=== PATIENT | female | born 1990 | race Caucasian/White ===

== ENCOUNTER 2016-09-29 00:52 | Emergency (ER) ==
[2016-09-29 01:01] VITALS: BP 121/89; TEMP 98.4; BMI 30.4
[2016-09-29] MEDS ORDERED: SODIUM CHLORIDE 1,000 ML IV STA (01:24)
--- NOTE | 2016-09-29 01:24 | ED.PDOC ---
General Stated Complaint: Patient is brought by police, as she was in the hotel parking lot and crying c/o headache, she is been drinking tonight, had 3 drinks of vodka ,. \c/o she is been having headaches for couple of years, on and off, also she says she is been bite bite something, ever since she is vomiting worms, black matter, noone listens to me. Time Seen by Physician: 01:21 Mode of Arrival: Police Information Source: Patient Nursing and Triage Documentation Reviewed and Agree: Yes <ELVA ROMERO - Last Filed: 09/29/16 01:21> Stated Complaint: patient in and out of room no acute distress not examined counsellor here at 10:20 vistaril and olanzipine has no coombs, per counsellor. per [facility]sellor [facility] at [facility] without paying arrested- kicked out of long term due to arrest- here for meds note no local psychiatrist. will allow home without patient follow up may contact psych in [place] as reportedly planned last [facility] visit <JANIE LEE JR - Last Filed: 09/29/16 16:43> ED Provider: Dr. JANIE LEE JR Chief Complaint: Behavioral Complaint Neurological Complaint Exam - Headache Complaint/Exam Onset: Gradual Symptoms Are: Still present Timing: Intermittent Episodes Lasting: Weeks Worst Headache Ever: No Initial Severity: Severe Current Severity: Moderate Location: Right, Left, Frontal Character: Reports: Unable to describe Aggravating: Reports: Bright lights Alleviating: Reports: None Associated Signs and Symptoms: Reports: Nausea, Vomiting. Denies: Dizziness, Seizure, Sinus pressure, Fever, Neck pain, Neck stiffness, Decreased LOC, Visual changes Related History: Reports: Similar episode Related Surgical History: Reports: None SAH Risk Factors: Reports: None Meningitis Risk Factors: Reports: None SDH Risk Factors: Reports: None Temporal Arteritis Risk Factors: Reports: None Sinus Tenderness: Present: None TMJ Tenderness: Present: None Meningeal Signs Positive: No Pain on Passive Flexion-Positive Kernig's: No ROM Limited In: No Limitiations Focal Weakness: Present: None Focal Sensory Loss: Present: None Gait: Normal Nystagmus Present: No Gag Reflex Present: Yes [id number]: Normal Findings Romberg Test Positive: No Babinski Sign: Negative Right, Negative Left Differential Diagnoses: Other (headache, etoh, hallusinations.) <ELVA ROMERO - Last Filed: 09/29/16 01:21> Review of Systems - Review Of Systems Constitutional: Reports: Malaise, Weakness Eyes: Reports: No symptoms Ears, Nose, Mouth, Throat: Reports: No symptoms Respiratory: Reports: No symptoms Cardiac: Reports: No symptoms GI: Reports: Abdominal pain, Nausea, Vomiting : Reports: No symptoms Musculoskeletal: Reports: No symptoms Skin: Reports: No symptoms Neurological: Reports: Emotional problems, Headache, Weakness Endocrine: Reports: No symptoms Hematologic/Lymphatic: Reports: No symptoms All Other Systems: Reviewed and Negative <ELVA ROMERO - Last Filed: 09/29/16 01:21> Past Medical History - Past Medical History Previously Healthy: Yes Endocrine: Reports: None Cardiovascular: Reports: None Respiratory: Reports: None Hematological: Reports: None Gastrointestinal: Reports: None Genitourinary: Reports: None Neuro/Psych: Reports: Depression, Bipolar Disorder Musculoskeletal: Reports: None Cancer: Reports: None Last Menstrual Period: UNKNOWN - Surgical History General Surgical History: Reports: None - Family History Family History: Reports: None - Social History Smoking Status: Current every day smoker, Heavy tobacco smoker Hx Substance Use: No Alcohol Screening: Occasionally - Immunizations Tetanus Shot up to Date: Yes <ELVA ROMERO - Last Filed: 09/29/16 01:21> Physical Exam - Physical Exam Appearance: Well-appearing (not examined by Dr Lee) Respiratory: Airway patent <JANIE LEE JR - Last Filed: 09/29/16 16:43> Re-Evaluation - Re-Evaluation Time of Re-Evaluation: 10:39 (patient in and out of room no acute distress not examined counsellor here at 10:20 vistaril and olanzipine has no coombs, per counsellor) Status: Improved Additional Comments: patient in and out of room no acute distress not examined counsellor here a <JANIE LEE JR - Last Filed: 09/29/16 16:43> Critical Care Note - Critical Care Note Total Time (mins): 0 <JANIE LEE JR - Last Filed: 09/29/16 16:43> Course - Course Hematology/Chemistry: 09/29/16 01:25 09/29/16 01:25 <JANIE LEE JR - Last Filed: 09/29/16 16:43> - Course Orders, Labs, Meds: Lab Review 09/29/16 09/29/16 09/29/16 01:25 02:05 02:07 WBC 8.71 RBC 4.94 Hgb 14.3 Hct 40.2 MCV 81.4 MCH 28.9 MCHC 35.6 H RDW Coeff of Cheikh 12.7 Plt Count 285 Immature Gran % (Auto) 1.0 Neut % (Auto) 58.0 Lymph % (Auto) 31.0 Sanders % (Auto) 5.7 Eos % (Auto) 3.6 Baso % (Auto) 0.7 Immature Gran # (Auto) 0.1 Neut # 5.1 Lymph # 2.7 Sanders # 0.5 Eos # 0.3 Baso # 0.1 Sodium 143 Potassium 3.4 L Chloride 108 H Carbon Dioxide 19 L Anion Gap 19.4 BUN 6 L Creatinine 0.77 Estimated GFR (MDRD) 93.00 BUN/Creatinine Ratio 7.79 Glucose 88 Calcium 8.9 Total Bilirubin 0.37 AST 20 ALT 46 Alkaline Phosphatase 61 Total Protein 7.4 Albumin 4.2 Globulin 3.2 Albumin/Globulin Ratio 1.31 Amylase 45 Lipase 20 TSH 2.724 Urine Color Yellow Urine Clarity Clear Urine pH 5.5 Ur Specific [place] 1.015 Urine Protein Negative Urine Glucose (UA) Negative Urine Ketones Negative Urine Blood 2+ Urine Nitrite Negative Urine Bilirubin Negative Urine Urobilinogen 0.2 Ur Leukocyte Esterase Trace Urine Microscopic RBC 5-10 Urine Microscopic WBC 2-5 Ur Squamous Epith Cells 5-10 Urine Bacteria 1+ Urine Test Negative Salicylate Level mg/dL < 5.0 Urine Opiates Screen Negative Ur Oxycodone Screen Negative Urine Methadone Screen Negative Ur Propoxyphene Screen Negative Acetaminophen < 3 L Ur Barbiturates Screen Negative U Tricyclic Antidepress Negative Ur Phencyclidine Scrn Negative Ur Amphetamine Screen Negative U Methamphetamines Scrn Negative U Benzodiazepines Scrn Negative Urine Cocaine Screen Negative U Cannabinoids Screen Negative Plasma/Serum Alcohol 137.5 H 09/29/16 06:45 WBC RBC Hgb Hct MCV MCH MCHC RDW Coeff of Cheikh Plt Count Immature Gran % (Auto) Neut % (Auto) Lymph % (Auto) Sanders % (Auto) Eos % (Auto) Baso % (Auto) Immature Gran # (Auto) Neut # Lymph # Sanders # Eos # Baso # Sodium Potassium Chloride Carbon Dioxide Anion Gap BUN Creatinine Estimated GFR (MDRD) BUN/Creatinine Ratio Glucose Calcium Total Bilirubin AST ALT Alkaline Phosphatase Total Protein Albumin Globulin Albumin/Globulin Ratio Amylase Lipase TSH Urine Color Urine Clarity Urine pH Ur Specific [place] Urine Protein Urine Glucose (UA) Urine Ketones Urine Blood Urine Nitrite Urine Bilirubin Urine Urobilinogen Ur Leukocyte Esterase Urine Microscopic RBC Urine Microscopic WBC Ur Squamous Epith Cells Urine Bacteria Urine Test Salicylate Level mg/dL Urine Opiates Screen Ur Oxycodone Screen Urine Methadone Screen Ur Propoxyphene Screen Acetaminophen Ur Barbiturates Screen U Tricyclic Antidepress Ur Phencyclidine Scrn Ur Amphetamine Screen U Methamphetamines Scrn U Benzodiazepines Scrn Urine Cocaine Screen U Cannabinoids Screen Plasma/Serum Alcohol 38.5 Orders Category Date Time Status ED IV/MEDIPORT/POWERPORT .ONCE EMERGENCY 09/29/16 01:24 Active ED IV/MEDIPORT/POWERPORT .ONCE EMERGENCY 09/29/16 01:54 Active Mental Health Consult [ED MENTAL HEALTH CONSULT] .ONCE EMERGENCY 09/29/16 01: 55 Active ACETAMINOPHEN Stat LAB 09/29/16 01:25 Completed AMYLASE Stat LAB 09/29/16 01:25 Completed BLOOD ALCOHOL Stat LAB 09/29/16 01:25 Completed BLOOD ALCOHOL Stat LAB 09/29/16 06:45 Completed CBC W/ AUTO DIFF Stat LAB 09/29/16 01:25 Completed COMPREHENSIVE METABOLIC PANEL Stat LAB 09/29/16 01:25 Completed DRUG SCREEN, URINE, RAPID Stat LAB 09/29/16 02:05 Completed LIPASE Stat LAB 09/29/16 01:25 Completed SALICYLATE Stat LAB 09/29/16 01:25 Completed TSH [THYROID STIMULATING HORMONE] Stat LAB 09/29/16 01:25 Completed URINALYSIS C & S IF INDICATED Stat LAB 09/29/16 02:05 Completed URINE CULTURE Routine LAB 09/29/16 02:16 Received URINE Stat LAB 09/29/16 02:07 Completed 0.9 % Sodium Chloride [Saline Flush] MEDS 09/29/16 01:24 Discontinued 1 syr IVF PRN PRN Acetaminophen [Tylenol] MEDS 09/29/16 08:44 Discontinued 1,000 mg PO ONCE STA Mag-Al Plus//Lidocaine [Gi Cocktail] MEDS 09/29/16 01:55 Discontinued 30 ml PO ONCE STA Ondansetron HCl/Pf [Zofran 4 mg/2 ml] MEDS 09/29/16 08:06 Discontinued 4 mg IVP ONCE STA Sodium Chloride 0.9% [Sodium Chloride] 1,000 ml MEDS 09/29/16 01:24 Discontinued IV 100 mls/hr Medications Discontinued Medications Generic Name Dose Route Start Last Admin Trade Name Freq PRN Reason Stop Dose Admin Acetaminophen 1,000 mg 09/29/16 08:44 09/29/16 08:49 Tylenol PO 09/29/16 08:45 1,000 mg ONCE STA Administration Al Hydroxide/Mg Hydroxide 30 ml 09/29/16 01:55 09/29/16 02:10 Gi Cocktail PO 09/29/16 01:56 30 ml ONCE STA Administration Sodium Chloride 1,000 mls @ 100 mls/hr 09/29/16 01:24 09/29/16 01:44 Sodium Chloride IV 09/29/16 11:23 100 mls/hr .Q10H STA Administration Ondansetron HCl 4 mg 09/29/16 08:06 09/29/16 08:19 Zofran 4 Mg/2 Ml IVP 09/29/16 08:07 4 mg ONCE STA Administration Sodium Chloride 1 syr 09/29/16 01:24 09/29/16 08:19 Saline Flush IVF 1 syr PRN PRN Administration To flush IV Vital Signs: Temp Pulse Resp BP Pulse Ox 09/29/16 00:54 98.4 F 96 H 20 121/89 97 Departure <ELVA ROMERO - Last Filed: 09/29/16 01:21> - Departure Time of Disposition: 10:37 Pt referred to PMD for follow-up: No (ama) <JANIE LEE JR - Last Filed: 09/29/16 16:43> - Departure Disposition: AMA Discharge Problem: Problem behavior Condition: Stable Additional Instructions: patient in and out of room no acute distress not examined counsellor here at 10: 20 vistaril and olanzipine has no coombs, per counsellor per counsellor [facility], ate at [facility] left without paying arrested- kicked out of long term due to arrest- here for meds note no local psychiatrist. will allow home without patient follow up may contact psych in [place] as reportedly planned last [facility] visit per Jose not suicidal,offered phone to call [facility] for follow up- patient left ER- not intercepted as counsellor states not suicidal Allergies/Adverse Reactions: Allergies No Known Drug Allergies Adverse Reaction (Verified 09/29/16 01:00) Home Medications: Ambulatory Orders 1 [No Reported Medications] 09/29/16
[2016-09-29 01:31] LABS: BASOPHILS # (AUTO) 0.1 K/uL (0-0.2); BASOPHILS % (AUTO) 0.7 % (0.0-3.0); EOSINOPHILS # (AUTO) 0.3 K/ul (0.0-0.7); EOSINOPHILS % (AUTO) 3.6 % (0.0-7.0); HEMATOCRIT 40.2 % (37.0-47.0); HEMOGLOBIN 14.3 g/dl (12.0-16.0); LYMPHOCYTES # (AUTO) 2.7 K/uL (0.60-3.4); MEAN CORPUSCULAR HEMOGLOBIN 28.9 pg (27.0-31.0); MEAN CORPUSCULAR HGB CONC 35.6 (31.8-35.4); MEAN CORPUSCULAR VOLUME 81.4 fl (81.0-99.0); MONOCYTES # (AUTO) 0.5 K/uL (0.4-2.0); MONOCYTES % (AUTO) 5.7 (0-10); NEUTROPHILS # (AUTO) 5.1 K/ul (2.0-6.9); PLATELET COUNT 285 10^3/uL (140-440); RED BLOOD COUNT 4.94 10^6/ul (4.20-5.40); WHITE BLOOD COUNT 8.71 K/ul (4.6-10.2)
[2016-09-29] MEDS ORDERED: GI COCKTAIL PO STA (01:55)
[2016-09-29 02:11] LABS: BILIRUBIN,URINE Negative (NEGATIVE); KETONES,URINE Negative (NEGATIVE); LEUKOCYTE ESTERASE ,URINE Trace (NEGATIVE); NITRITE,URINE Negative (NEGATIVE); PH,URINE 5.5 (5-9); PROTEIN,URINE Negative (NEGATIVE); URINE, BLOOD 2+ (NEGATIVE)
[2016-09-29 02:11] LABS: ACETAMINOPHEN < 3 ug/ml (10-30); ALANINE AMINOTRANSFERASE 46 U/L (12-78); ALBUMIN 4.2 g/dL (3.4-5.0); ALBUMIN/GLOBULIN RATIO 1.31; ALKALINE PHOSPHATASE 61 U/L (42-98); AMYLASE 45 U/L (25-115); ANION GAP 19.4; ASPARTATE AMINO TRANSFERASE 20 U/L (15-37); BILIRUBIN,TOTAL 0.37 mg/dL (0.00-1.20); BLOOD UREA NITROGEN 6 mg/dL (7-18); BUN/CREATININE RATIO 7.79; CALCIUM 8.9 mg/dL (8.2-10.2); CARBON DIOXIDE 19 mmol/L (21-32); CHLORIDE 108 mmol/L (98-107); CREATININE 0.77 mg/dL (0.60-1.30); GLUCOSE 88 mg/dL (70-110); LIPASE 20 U/L (8-78); POTASSIUM 3.4 mmol/L (3.5-5.10); SALICYLATE < 5.0 mg/dL (2.8-20.0); SODIUM 143 mmol/L (136-145); TOTAL PROTEIN 7.4 g/dL (6.4-8.2)
[2016-09-29 02:12] LABS: URINE PREGNANCY INTERNAL QC INTERNAL QC VALID
[2016-09-29 02:12] LABS: ADD URINE MICROSCOPIC YES
[2016-09-29 02:14] LABS: COCAIN SCREEN,URINE NEGATIVE (NEGATIVE)
[2016-09-29 02:16] LABS: BACTERIA,URINE 1+ (NOT PRESENT)
[2016-09-29] MEDS ORDERED: ZOFRAN 4 MG/2 ML IVP STA (08:06)
[2016-09-29] MEDS ORDERED: TYLENOL PO STA (08:44)
== END 2016-09-29 10:35 | disposition left against medical advice (07) ==
LOC: ED 00:52
DX: R46.89 Other symptoms and signs involving appearance and behavior (principal); R11.2 Nausea with vomiting, unspecified; R51 Headache; R53.1 Weakness; F17.210 Nicotine dependence, cigarettes, uncomplicated
CPT/HCPCS: 36415; 80053; 80306; 80307; 81001; 81025; 82150; 83690; 84443; 85025; 87086; 96361; 96374; 99284

== ENCOUNTER 2016-09-29 22:47 | Outpatient (CLI) ==
[2016-09-29 01:01] VITALS: BMI 30.4
== END 2016-09-29 22:48 | disposition short-term general hospital (02) ==
LOC: AMBL 22:47
PROVIDERS: ATTEND Family Medicine
DX: E86.0 Dehydration (principal); R11.10 Vomiting, unspecified

== ENCOUNTER 2017-08-02 18:38 | Outpatient (CLI) ==
[2017-08-03 05:27] VITALS: BMI 27.3
== END 2017-08-02 18:52 | disposition short-term general hospital (02) ==
LOC: AMBL 18:38
PROVIDERS: ATTEND Emergency Medicine
DX: T67.9XXA Effect of heat and light, unspecified, initial encounter (principal); Z59.0 Homelessness

== ENCOUNTER 2017-08-03 04:39 | Outpatient (CLI) ==
[2017-08-03 05:27] VITALS: BMI 27.3
== END 2017-08-03 04:45 | disposition short-term general hospital (02) ==
LOC: AMBL 04:39
PROVIDERS: ATTEND Internal Medicine Geriatric Medicine
DX: T14.90XA Injury, unspecified, initial encounter (principal); W19.XXXA Unspecified fall, initial encounter; F17.210 Nicotine dependence, cigarettes, uncomplicated

== ENCOUNTER 2017-08-03 04:51 | Emergency (ER) ==
[2017-08-03 05:27] VITALS: BP 121/86; TEMP 98.5; BMI 27.3
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
[2017-08-03] MEDS ORDERED: TYLENOL PO STA (06:32)
== END 2017-08-03 08:02 | disposition home or self-care (01) ==
LOC: ED 04:51
DX: S09.90XA Unspecified injury of head, initial encounter (principal); R51 Headache; W19.XXXA Unspecified fall, initial encounter; F17.210 Nicotine dependence, cigarettes, uncomplicated
CPT/HCPCS: 99283